=== PATIENT | female | born 1965 | race African-American/Black ===

== ENCOUNTER 2018-08-22 12:48 | Emergency (ER) | payer MEDICAID ==
[~2018-08-22] VITALS: Ht 162.6 cm; Wt 100.0 kg
[2018-08-22 13:06] VITALS: BP 145/72
[2018-08-22] MEDS ORDERED: HYDROCODONE/ACETAMINOPHEN 5/325MG TABLET PO ONE (13:15)
== END 2018-08-22 14:51 | disposition home or self-care (01) ==
LOC: ER 12:48
DX: S80.01XA Contusion of right knee, initial encounter (principal); Z90.49 Acquired absence of other specified parts of digestive tract; W01.0XXA Fall on same level from slipping, tripping and stumbling without subsequent striking against object, initial encounter; Y93.89 Activity, other specified; Y92.218 Other school as the place of occurrence of the external cause
CPT/HCPCS: 73562; 99283